=== PATIENT | female | born 1955 | race Caucasian/White ===

== ENCOUNTER → 2024-06-30 10:48 | Outpatient (CLI) | payer OTHER, SELFPAY ==
--- NOTE | 2024-06-30 10:52 | DI.RAD.S_ITS ---
PROCEDURE: XR LUMBAR SPINE MIN 4V INDICATIONS: BACK PAIN TECHNIQUE: 5 views of the lumbar spine were acquired, including bilateral oblique views. COMPARISON: None. FINDINGS: Bones: 5 nonrib-bearing vertebrae are present. Grade 1 retrolisthesis at L2-3, L3-4, and L4-5. No vertebral body compression fractures. No suspicious bony lesions. Soft tissues: Overlying bowel gas pattern is normal. Punctate hyperdense foci within the stool. No suspicious soft tissue calcifications. Oblique images: No pars defects. IMPRESSION: 1. No acute osseous abnormality. If symptoms persist or if there is continued clinical concern, cross-sectional imaging such as MRI or CT may be helpful for further evaluation. 2. Moderate multilevel lumbar spondylosis and degenerative spondylolisthesis. Approved by: Shawn Bartlett M.D. on 06/30/2024 at 12:26
== END ==
PROVIDERS: Referring Provider Physical Medicine & Rehabilitation; Visit Provider Physical Medicine & Rehabilitation
DX: M47.816 Spondylosis without myelopathy or radiculopathy, lumbar region (principal); M43.16 Spondylolisthesis, lumbar region; M54.9 Dorsalgia, unspecified
CPT/HCPCS: 72110

== ENCOUNTER 2024-07-18 08:07 | Outpatient (CLI) | payer OTHER, SELFPAY ==
[2024-07-18] VITALS (8 sets, daily range): BP systolic 156–188; BP diastolic 75–90; PULSE 64–72; RESP 14–16; TEMP 36.1; O2SAT 98–100
[2024-07-18] MEDS: MIDAZOLAM 2 MG/2 ML VIAL IV (09:10)
[2024-07-18] MEDS: iopamidoL 15 ML VIAL 3 ML INJ (09:14)
[2024-07-18] MEDS: DEXAMETHASONE 10 MG/ML VIAL INJ (09:14)
[2024-07-18] MEDS: BETAMETHASONE 30 MG/5 ML MDV 12 MG INJ (09:15)
[2024-07-18] MEDS: BUPIVACAINE 0.25% (PF) VIAL 2 ML INJ (09:15)
--- NOTE | 2024-07-18 09:27 | P.PCN_ITS ---
Date/Time/Diagnoses Date of procedure: 07/18/24 Time of procedure: 09:27 Pre-procedure diagnosis: 1. FORAMINAL STENOSIS WITH LE SYMPTOMS Post-procedure diagnosis: same Procedure Notes Procedure: 1. FLUOROSCOPICALLY GUIDED CONTRAST CONTROLLED TRANSFORAMINAL EPIDURAL STEROID INJECTION - RIGHT L4/5 TFESI Indications: Rosaline is referred by Dr. Henson for treatment of Foraminal Stenosis with Right LE Symptoms Physician: Mati Delarosa Total Fluoroscopy time (seconds): 12 Total sedation minutes: 12 Complications: none Procedure in detail & Post-procedure care: FINDINGS Foraminal Nerve Root Compression secondary to disc disease and facet hypertrophy DESCRIPTION OF PROCEDURE Following review of allergy and review of potential side effects and complications, including, but not necessarily limited to, infection, allergic reaction, local tissue breakdown, stroke, temporary or permanent nerve injury, paralysis, and possible , the patient indicated that the patient understood and agreed to proceed. An informed consent document was signed by the patient, witnessed by a nurse, and placed in the patient's chart. Additionally, other treatment options including medications, modalities, and physical therapy were reviewed with the patient. After review of previous anaesthesic history and IV conscious sedation the patient was deemed safe to proceed with today?s procedure with IV conscious sedation as ASA class II designation. Safety time-out was performed to confirm patient ID, procedure to be performed and site of procedure. IV sedation was accomplished with a combination of 2mg of Versed was administered by the RN after DO order, titrated to patient comfort during the course of the procedure while the patient remained responsive to all verbal commands In the prone position following sterile prep and drape of the lumbar region, the right L4/5 posterior neuroforamen was identified fluoroscopically. The skin was anesthetized via a 25-gauge 1.5-inch needle with 1% lidocaine solution. At this point, a 25-gauge 3.5-inch spinal needle was atraumatically introduced and advanced under fluoroscopic guidance through the posterior right L4/5 neuroforamen to approximately the anterior aspect of the canal. Depth was confirmed on lateral view. Following negative aspiration, injection of approximately 1.5cc of Isovue 200 under live fluoroscopy in the AP view c onfirmed excellent flow along the nerve root, into the epidural space without vascular or intrathecal uptake observed Radiological data, including multiple fluoroscopic views of the lumbosacral spi ne, reveal a spinal needle at the right L4/5 posterior neuroforamen. Subsequent views show flow of contrast material flowing superiorly and inferiorly along the nerve root confirming epidural flow. Subsequently, a test dose of 1.5 cc of 1% lidocaine solution was administered and patient was observed for two minutes for signs or symptoms of complications, including abdominal pain, shortness of breath, bilateral upper or lower extremity weakness, nausea and vomiting, prior to steroid injection. At this point, a total of 2cc or 10mg of dexamethasone and 6mg of betamethasone was injected without incident. The procedure tolerated the procedure well without signs or symptoms of complications prior to transfer to the recovery area continued monitoring without incident. The patient was then transferred to the recovery area where they were observed for an appropriate time after the injection. The patient reported a VAS score of 7 prior to the procedure and a post- procedure VAS of 0. POST OP INSTRUCTIONS The patient was provided a Pain Log to continue to record their response to the target-specific procedure prior to follow-up visit with their referring physician. Additionally, specific post-injection care instructions and a contact number to our office were provided if concerns arise regarding possible complications associated with the procedure are suspected.
== END 2024-07-18 09:40 | disposition home or self-care (01) ==
LOC: RAD 08:08
PROVIDERS: PCP Family Medicine; Referring Provider Physical Medicine & Rehabilitation; Visit Provider Physical Medicine & Rehabilitation
DX: M48.061 Spinal stenosis, lumbar region without neurogenic claudication (principal); M51.16 Intervertebral disc disorders with radiculopathy, lumbar region; M47.26 Other spondylosis with radiculopathy, lumbar region
CPT/HCPCS: 64483; 99152; J0702; J1100; J2250; J3490

== ENCOUNTER → 2024-09-27 15:33 | Outpatient (CLI) | payer OTHER, SELFPAY ==
--- NOTE | 2024-09-27 15:34 | DI.MRI.S_ITS ---
PROCEDURE: MR LUMBAR SPINE WO CON INDICATIONS: BACK PAIN TECHNIQUE: Noncontrast sagittal T1 spin echo and T2 fast echo, sagittal STIR, and T2 fast spin echo through the lumbar spine. In cases with scoliosis, additional coronal T2 fast spin echo may be performed. COMPARISON: [facility] Outside Film, MR, MR LUMBAR SPINE WITHOUT CONTRAST, 06/09/2023, 13:32. FINDINGS: Image quality: Excellent. Alignment and Curvature: Grade 1 retrolisthesis of L2 on L3. Mild retrolisthesis of L3 on L4 and L4 on L5. Bone Marrow: Degenerative endplate changes. Marrow is of normal overall signal. No acute vertebral body compression fractures. Spinal Cord: Conus medullaris terminates at the L1 level. Visualized cord demonstrates normal signal and size. Paraspinous Soft Tissues: No paravertebral masses. T12-L1: Disc desiccation. No central canal or neural foraminal stenosis. L1-L2: Disc desiccation and height loss. Mild disc bulge. Facet arthropathy. No significant central canal or neural foraminal stenosis. L2-L3: Disc desiccation is severe height loss. Posterior disc bulge. Facet arthropathy. Mild to moderate central canal stenosis and [id number] bilateral neural foraminal stenosis is stable. L3-L4: Disc desiccation and diffuse disc bulge. Facet arthropathy and thickening of ligamentum flavum. Moderate central canal stenosis and bilateral lateral recess stenosis. Mild bilateral neural foraminal stenosis. Stable compared to prior. L4-L5: Disc desiccation and mild height loss. Mild disc bulge. Facet arthropathy and thickening of ligamentum flavum. Mild central canal stenosis. Mild right lateral recess stenosis. [id number] right and mild left neural foraminal stenosis is stable. L5-S1: Disc desiccation and mild height loss. Diffuse disc bulge. Facet arthropathy. No central canal stenosis. Gccw-[id number] left and mild right neural foraminal stenosis is stable. IMPRESSION: Stable multilevel degenerative changes of the lumbar spine as described above. No acute osseous abnormalities. Dictated by: Juan José Johansen M.D. on 09/27/2024 at 16:43 Approved by: Juan José Johansen M.D. on 09/27/2024 at 16:49
== END ==
LOC: MRI 15:33
PROVIDERS: PCP Family Medicine; Referring Provider Physical Medicine & Rehabilitation; Visit Provider Physical Medicine & Rehabilitation
DX: M48.061 Spinal stenosis, lumbar region without neurogenic claudication (principal); M51.16 Intervertebral disc disorders with radiculopathy, lumbar region; M47.26 Other spondylosis with radiculopathy, lumbar region
CPT/HCPCS: 72148